=== PATIENT | male | born 1960 ===

== ENCOUNTER 2019-05-09 21:05 | Emergency (ER) | payer MEDICARE, OTHER ==
--- NOTE | 2019-05-09 21:23 | ED ---
Adult Trauma - HPI Summary HPI Summary: Patient complains of left wrist pain and deformity status post mechanical fall prior to arrival. Patient nonspecific and details when asked. Admits to drinking "a few beers". Denies any other pain, symptoms or injuries. Charge nurse spoke with the patient's sister who spoke to a cousin who was present during fall. Per patient cousin, pt lost balance and fell from 3 feet up a ladder, positive loss of consciousness. Ambulatory on scene upon return to consciousness.. - History of Current Complaint Chief Complaint: EDExtremityUpper Stated Complaint: POSS LEFT ARM BROKEN PER PT Time Seen by Provider: 05/09/19 21:14 Hx Obtained From: Patient Mechanism of Injury: Fall Ambulatory at the Scene: Yes Loss of Consciousness: no loss of consciousness Onset of Pain: Immediate Onset Severity: Moderate Current Severity: Mild Pain Intensity: 2 Pain Scale Used: 0-10 Numeric Location: Extremities Aggravating Factor(s): Movement Alleviating Factor(s): Rest - Allergy/Home Medications Allergies/Adverse Reactions: Allergies Allergy/AdvReac Type Severity Reaction Status Date / Time No Known Allergies Allergy Verified 05/09/19 21:10 PMH/Surg Hx/FS Hx/Imm Hx Endocrine/Hematology History: Denies: Hx Anticoagulant Therapy Cardiovascular History: Denies: Hx Pacemaker/ICD History: Denies: Hx Dialysis Sensory History: Denies: Hx Eye Prosthesis Opthamlomology History: Denies: Hx Legally Blind EENT History: Denies: Hx Deafness Infectious Disease History: No Infectious Disease History: Denies: Traveled Outside the [place] in Last 30 Days - Family History Known Family History: Positive: Non-Contributory - Social History Alcohol Use: Weekly Hx Substance Use: Yes Hx Tobacco Use: Yes Review of Systems Constitutional: Negative Eyes: Negative ENT: Negative Cardiovascular: Negative Respiratory: Negative Gastrointestinal: Negative Genitourinary: Negative Musculoskeletal: Other Skin: Negative Neurological/Mental Status: Negative Psychological: Normal All Other Systems Reviewed And Are Negative: Yes Physical Exam - Summary Physical Exam Summary: Patient alert and coherent, but appears mildly intoxicated. Positive deformity to left wrist. PMS intact distally. No evidence of trauma to mouth, face, head. No pain with palpation of neck, back, chest or abdomen. Full range of motion of neck and jaw. Patient moves right upper extremity. All joints without indication of pain. Bilateral lower extremities freely without any indication of pain. Neuro exam normal. Triage Information Reviewed: Yes Vital Signs On Initial Exam: Initial Vitals Temp Pulse Resp BP Pulse Ox 97.5 F 65 16 145/93 98 05/09/19 21:09 05/09/19 21:09 05/09/19 21:09 05/09/19 21:09 05/09/19 21:09 Vital Signs Reviewed: Yes Appearance: Positive: Well-Appearing Skin: Positive: Warm Head/Face: Positive: Normal Head/Face Inspection Eyes: Positive: Normal Dental: Negative: Dental Fracture @, Bleeding Neck: Positive: Supple Respiratory/Lung Sounds: Positive: Clear to Auscultation Cardiovascular: Positive: Normal Abdomen Description: Positive: Nontender Musculoskeletal: Positive: Normal Neurological: Positive: Normal Psychiatric: Positive: Normal AVPU Assessment: Alert - Josef Coma Scale Best Eye Response: 4 - Spontaneous Best Motor Response: 6 - Obeys Commands Best Verbal Response: 5 - Oriented Coma Scale Total: 15 Procedures - Sedation Patient Received Moderate/Deep Sedation with Procedure: No - Splinting 1 Location: left wrist Hand-Made Type: orthoglass Splint: sugar-tong Pre-Proc Neuro Vasc Exam: normal Post-Proc Neuro Vasc Exam: normal Diagnostics - Vital Signs Vital Signs Temp Pulse Resp BP Pulse Ox 05/09/19 21:09 97.5 F 65 16 145/93 98 - Laboratory Result Diagrams: 05/09/19 21:33 05/09/19 21:33 Lab Statement: Any lab studies that have been ordered have been reviewed, and results considered in the medical decision making process. Adult Trauma Course/Dx - Course Course Of Treatment: Patient complains of left wrist pain and deformity status post mechanical fall prior to arrival. Patient nonspecific and details when asked. Admits to drinking "a few beers". Denies any other pain, symptoms or injuries. Charge nurse spoke with the patient's sister who spoke to a cousin who was present during fall. Per patient cousin, pt lost balance and fell from 3 feet up a ladder, positive loss of consciousness. Ambulatory on scene upon return to consciousness.. Vital signs within normal limits. X-ray left wrist positive for distal fracture vomitus and radius. Left tib-fib x-ray negative. Patient refused CT brain and CT chest abdomen and pelvis. Risks were explained to patient due to fall with subsequent loss of consciousness. Patient has no indication of trauma to head. Patient states he has no symptoms. ETOH 253. Patient is alert, oriented, coherent, ambulated and dressed himself without any imbalance or stumbling whatsoever. Clinically sober. Competent to make decisions. Patient is being discharged into care of his sister. Discussed patient images with orthopedics Dr. Glover, who recommended follow-up in clinic on Saturday for probable surgery. Was explained to patient that he will require surgery. Patient seems unlikely to follow-up for orthopedic evaluation. Patient does not have insurance, appears to be concerned about cost. Discussed need for orthopedic evaluation and surgery with his sister. Sent picture of fracture with patient. Sister understands and agrees to discuss surgical evaluation with patient. - Diagnoses Provider Diagnoses: Fall, Fracture of radius, distal, with ulna, closed Discharge ED - Sign-Out/Discharge Documenting (check all that apply): Patient Departure - Discharge Plan Condition: Stable Disposition: AGAINST MEDICAL ADVICE Patient Education Materials: Wrist Fracture in Adults (ED) Referrals: Russ Buitrago MD [Primary Care Provider] - Karlos Terrazas MD [Medical Doctor] - Additional Instructions: Called clinic of orthopedics Dr. Terrazas on Saturday morning to arrange for further evaluation of wrist fracture. Alternate ibuprofen 600 mg with Tylenol 650 mg every 3 hours for pain if needed. - Billing Disposition and Condition Condition: STABLE Disposition: Against Medical Advice
[2019-05-09] MEDS ORDERED: Lidocaine 1% MPF ** 5 ML VIAL INJ ONE (21:40)
[2019-05-09 21:41] LABS: ABS Basophils 0.1 10^3/ul (0-0.2); ABS Eosinophils 0.1 10^3/ul (0-0.6); ABS Lymphocytes 2.9 10^3/ul (1.0-4.8); ABS Monocytes 0.9 10^3/ul (0-0.8); ABS Neutrophils 2.9 10^3/ul (1.5-7.7); Eosinophil % 0.8 %; Hematocrit 34 % (42-52); Hemoglobin 11.6 g/dL (14.0-18.0); Lymphocyte % 42.1 %; Mean Corpuscular HGB Conc 34 g/dL (31-36); Mean Corpuscular Hemoglobin 30 pg (27-31); Mean Corpuscular Volume 89 fL (80-94); Mean Platelet Volume 6.5 fL (7.4-10.4); Platelet Count 343 10^3/uL (150-450); Red Blood Count 3.88 10^6 /uL (4.18-5.48); Red Cell Distribution Width 18 % (10-15); White Blood Count 6.9 10^3/uL (3.5-10.8)
[2019-05-09 22:01] LABS: Albumin 4.6 g/dL (3.2-5.2); Albumin/Globulin Ratio 2.2 (1-3); BUN/Creatinine Ratio 16.9 (8-20); Calcium 8.6 mg/dL (8.6-10.3); EGFR African American 138.9 (>60); EGFR Non-African American 114.8 (>60); Globulin 2.1 g/dL (2-4); Potassium 3.5 mmol/L (3.5-5.0); Total Bilirubin 0.5 mg/dL (0.2-1.0); Total Protein 6.7 g/dL (6.4-8.9)
[2019-05-09] MEDS ORDERED: Iohexol 300* (CONTRAST) 10 ML SDV IV ONE (22:25)
[2019-05-09 23:49] VITALS: BP 0/0
== END 2019-05-09 23:41 | disposition left against medical advice (07) ==
LOC: ED 21:05
DX: S52.92XA Unspecified fracture of left forearm, initial encounter for closed fracture (principal); S52.602A Unspecified fracture of lower end of left ulna, initial encounter for closed fracture; M25.532 Pain in left wrist; W11.XXXA Fall on and from ladder, initial encounter; Y92.9 Unspecified place or not applicable
CPT/HCPCS: 36415; 80053; 80320; 85025; 96374; 99283; G0480